=== PATIENT | female | born 1980 | race Caucasian/White ===

== ENCOUNTER 2021-02-07 13:57 | Emergency (ER) | payer SELFPAY ==
[~2021-02-07] VITALS: Ht 170.2 cm; Wt 69.4 kg
[2021-02-07 14:16] VITALS: BP 121/86
--- NOTE | 2021-02-07 14:23 | NUR ---
PT AMBULATED TO BED 9
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
--- NOTE | 2021-02-07 14:46 | NUR ---
SAID BEDSIDE EVALUTING PT
[2021-02-07] MEDS ORDERED: KEN.5O TP (14:58)
[2021-02-07] MEDS ORDERED: [UNRECOGNIZED DRUG - CODE] TP (14:58)
[2021-02-07 15:06] VITALS: BP 121/86
--- NOTE | 2021-02-07 15:07 | NUR ---
Patient discharged with v/s stable. Written and verbal after care instructions given and explained. Patient alert, oriented and verbalized understanding of instructions. Ambulatory with steady gait. All questions addressed prior to discharge. ID band removed. Patient advised to follow up with PMD. Rx of CALCIPOTRIENE AND KENALOG given. Patient educated on indication of medication including possible reaction and side effects. Opportunity to ask questions provided and answered.
== END 2021-02-07 15:06 | disposition home or self-care (01) ==
LOC: MED 13:57
DX: L40.9 Psoriasis, unspecified (principal); R21 Rash and other nonspecific skin eruption; F41.9 Anxiety disorder, unspecified
CPT/HCPCS: 99283